=== PATIENT | female | born 1995 | race Caucasian/White ===

== ENCOUNTER 2020-11-20 17:45 | Observation (INO) ==
[2020-11-20 19:10] LABS: Bilirubin,Urine Negative (Negative); Blood,Urine Negative (Negative); Clarity,Urine Clear (Clear); Color,Urine Colorless (Yellow); Glucose,Urine (UA) Normal (Normal); Ketones,Urine Negative (Negative); Leukocyte Esterase,Urine Negative (Negative); Nitrite,Urine Negative (Negative); Protein,Urine Negative (Neg-Trace); Specific Gravity,Urine 1.012 (1.010-1.025); Urobilinogen,Urine Normal (Normal)
[2020-11-20] MEDS ORDERED: traZODone 50 MG TABLET PO PRN (21:04)
[2020-11-20] MEDS ORDERED: *HR* LORazepam 2 MG/ML VIAL IM PRN (21:04)
[2020-11-20] MEDS ORDERED: Mag Hydrox/Al Hydrox/Simeth 30 ML UDC PO PRN (21:04)
[2020-11-20] MEDS ORDERED: *HR* LORazepam 1 MG TABLET PO PRN (21:04)
[2020-11-20] MEDS ORDERED: hydrOXYzine pamoate 25 MG CAPSULE PO PRN (21:04)
[2020-11-20] MEDS ORDERED: haloperidoL 5 MG TABLET PO PRN (21:04)
[2020-11-20] MEDS ORDERED: Acetaminophen 325 MG TABLET PO PRN (21:04)
[2020-11-20] MEDS ORDERED: Haloperidol Lactate 5 MG/ML VIAL IM PRN (21:04)
[2020-11-20] MEDS ORDERED: MOM Conc 10 ML UD.LIQ PO PRN (21:04)
[2020-11-21 12:10] VITALS: BP 149/88
== END 2020-11-21 15:35 | disposition home or self-care (01) | DRG 751 ==
LOC: EMEROOARM 17:45 → INTOOBSV 21:03 → 1ANU 21:03
PROVIDERS: ADMIT Psychiatry & Neurology Psychiatry; ATTEND Psychiatry & Neurology Psychiatry